=== PATIENT | male | born 2000 | race Two or more races ===

== ENCOUNTER 2025-01-20 07:21 | Emergency (ER) | payer MEDICAID, SELFPAY ==
[2025-01-20 07:21] VITALS: BMI 21.1
[2025-01-20 07:29] VITALS: BP 130/83; PULSE 67; RESP 19; TEMP 36.9; O2SAT 98
--- NOTE | 2025-01-20 07:33 | XR_ITS ---
Examination: Abdomen sonogram, Limited Date and time of exam: January 20, 2025, 0831 hrs. Indications: Upper abdominal pain beginning 2 hours ago. Technique: Real-time cavazos scale transabdominal sonographic images of the upper abdomen obtained. Findings: Cholelithiasis, negative for cholecystitis Common bile duct 0.2 cm Pancreatic head 2.0 cm. Liver 15 cm no liver lesions. Normal hepatopedal portal venous oh Patent IVC. Impression: Cholelithiasis, negative for cholecystitis
--- NOTE | 2025-01-20 07:34 | PD.EDABDPN ---
ED Abdominal Pain RME/HPI General Chief Complaint: Abdominal Pain Stated complaint: ABD PAIN AND NAUSEA TODAY SINCE 529 Time seen by provider: 01/20/25 07:27 Arrival date/time: 01/20/25 07:21 Source: patient Mode of arrival: ambulatory Limitations: no limitations RME / HPI RME / HPI narrative: Patient is a 24-year-old male with no significant past medical history seen emerged from concerns for epigastric pain. Patient states that he had tacos at approximately 12 AM, went to bed woke up this morning started having epigastric pain at approximately 540 in the morning, took Pepto-Bismol symptoms did not improve. Denies nausea vomiting chest pain palpitations dysuria hematuria melena bloody stools drugs smoking. Patient does drink alcohol. Denies diarrhea. Patient is having regular bowel movements. No surgeries to his alejandra HARPER complaint: abdominal pain Related Data Previous Rx's ?Medication ?Instructions ?Recorded ibuprofen 600 mg tablet 600 mg PO Q6H #30 tabs 06/20/19 Allergies Allergy/AdvReac Type Severity Reaction Status Date / Time No Known Allergies Allergy Verified 01/20/25 07:23 ED Exam General Limitations: Present no limitations General appearance: Present in no apparent distress Head Head exam: Present atraumatic Eye Eye exam: Present normal appearance, PERRL and EOMI; Absent conjunctival injection ENT ENT exam: Present normal exam and mucous membranes moist Neck Neck exam: Present normal inspection Chest Chest inspection: Present symmetric chest wall rise Respiratory Respiratory exam: Present normal lung sounds bilaterally Cardiovascular Cardiovascular exam: Present regular rate and normal rhythm Abdominal Exam Abdominal exam: Present soft and tenderness (Tenderness to palpation in the epigastrium, no rebound or guarding); Absent distention Back Exam Back exam: Present normal inspection Neurological Exam Neurological exam: Present alert, oriented X3 and CN II-XII intact Psychiatric Psychiatric exam: Present normal affect Skin Skin exam: Present warm and dry Course Quality Measures none Orders Category Date Time Status US abdomen limited Stat Exams 01/20/25 07:33 Completed CBC Stat Lab 01/20/25 08:08 Completed CMP [Comprehensive Metabolic Panel] Stat Lab 01/20/25 08:08 Completed Drug Screen,Urine Stat Lab 01/20/25 08:10 Completed Lactic Acid [Lactate (Lactic Acid)] Stat Lab 01/20/25 10:50 Completed Lipase Stat Lab 01/20/25 08:08 Completed UA, C/S IF [Urinalysis, C/S if Indicated] Stat Lab 01/20/25 08:10 Completed Lidocaine 2% Viscous [Xylocaine 2% Viscous] Med 01/20/25 07:33 Discontinued 15 ml PO X1 ONE mg Hyd/Al Hyd/Josue Susp [Maalox Susp] Med 01/20/25 07:33 Discontinued 30 ml PO X1 ONE Vital Signs Vital signs: Vital Signs Temperature 98.4 F 01/20/25 07:29 Pulse Rate 67 01/20/25 07:29 Respiratory Rate 19 01/20/25 07:29 Blood Pressure 130/83 01/20/25 07:29 Pulse Oximetry (%) 98 01/20/25 07:29 Oxygen Delivery Method Room Air 01/20/25 07:29 Abdominal Pain [facility] Narrative [facility] Narrative:: Patient is a 24-year-old male is in the emerged from concerns for epigastric pain. Vital signs and exam as listed. Concern for cholelithiasis, cholecystitis, pancreatitis, gastritis among others. Ordered labs, right upper quadrant ultrasound offer medication for symptom Labs w/ leukocytosis, patient not septic on presentation. No acute metabolic abnormality. U/s w/ evidence of cholelithiasis no cholecystitis. On re-eval patient sx well controlled, tolerating oral intake. Will dc to home with close return precautions and follow up with pcp and general surgeon. Patient data External records reviewed:: [facility] previous records Clinical information provided by:: patient Social determinants that could affect healthcare access:: none Patient has the following chronic illnesses:: None How is presenting disease/condition affected by chronic disease/condition?: no chronic disease Evaluation data The following diagnostics were reviewed and interpreted by me:: lab results and radiology exam(s) Lab and/or radiology exams considered but not ordered:: None Interpretation Summary: See MDM Medications / Prescriptions Medications or Prescriptions considered but not ordered:: None Medication administrations:: Medication Administration History Discontinued Medications Al Hydrox/Mg Hydrox/Simethicone (Mg Hyd/Al Hyd/Josue (Maalox Reg) Susp 30 Ml Udc) 30 ml PO X1 ONE Stop: 01/20/25 07:34 Last Admin: 01/20/25 07:54 Dose: 30 ml Documented By: [facility] Lidocaine HCl (Lidocaine Viscous 2% 15 Ml Udc) 15 ml PO X1 ONE Stop: 01/20/25 07:34 Last Admin: 01/20/25 07:54 Dose: 15 ml Documented By: C See above Consultations Consultation(s) initiated? (list below): No Diagnosis Differential diagnosis abdominal pain: abdominal pain Most likely diagnosis given after review of the tests above:: Biliary colic Admission Indicated Admission indicated?: not indicated Admission Request Was there a request for admission?: No Disposition Plan Disposition Plan: Discharge Discharge Attestation Discharge Attestation: The patient and all family members were given an opportunity to ask questions and understood the discharge instructions. Discharge instructions specifically effects, indications for sooner follow up or return to the emergency department, and the expected course of current diagnosis. Patient condition: Stable Discharge Plan Plan Patient Disposition: HOME (Self Care) Prescriptions/Referrals Prescriptions/Med Rec: No Action ibuprofen 600 mg tablet 600 mg PO Q6H Qty: 30 0RF Problem List Clinical Impression: Abdominal pain, Cholelithiasis Patient/Caregiver Discharge Instructions Education Materials: Abdominal Pain, Treating Gallstones Additional Instructions: Please follow-up with your primary care doctor within the next 1 to 2 days. Please establish care with a surgeon and discuss management of your symptomatic cholelithiasis. Please avoid fatty food, alcohol, dairy, spicy food as this will trigger gallbladder pain. Print Language: [place] Stand Alone Forms: [facility]ast[employer] Award Info., Patient Portal Info Letter
[2025-01-20] MEDS: LIDOCAINE VISCOUS 2% 15 ML UDC PO (07:54)
[2025-01-20] MEDS: MG HYD/AL HYD/SIME (Maalox Reg) SUSP 30 ML UDC PO (07:54)
[2025-01-20 08:28] LABS: Collection Type, Urine Clean Catch; Squamous Epithelial Cell,Urine 0 /hpf (0-5)
[2025-01-20 08:54] LABS: Basophils # (Auto) 0.1 Thou/mm3 (0.0-0.2); Basophils % (Auto) 0 % (0-2.5); Eosinophils # (Auto) 0.0 Thou/mm3 (0.0-0.5); Eosinophils % (Auto) 0 % (0-10); Hematocrit 47.4 % (41.0-53.0); Hemoglobin 16.7 g/dL (13.5-16.0); Immature Granulocytes Auto 0.06 Thou/mm3 (0.00-0.00); Lymphocytes # (Auto) 1.8 Thou/mm3 (1.0-4.8); Lymphocytes % (Auto) 11 % (10-50); Mean Corpuscular HGB Conc 35.2 g/dl (31.0-37.0); Mean Corpuscular Hemoglobin 31.6 pg (25.0-35.0); Mean Corpuscular Volume 90 fL (80-100); Monocytes # (Auto) 0.7 Thou/mm3 (0.0-0.8); Monocytes % (Auto) 4 % (0-12); Neutrophils # (Auto) 13.8 Thou/mm3 (1.8-7.7); Neutrophils % (Auto) 84 % (37-80); Nucleated Red Blood Cell # 0.00 Thou/mm3 (0.00-0.00); Nucleated Red Blood Cell % 0 /100 WBC (0); Platelet Count 212 Thou/mm3 (140-440); RDW Standard Deviation 39.6 fL (35.1-43.9); Red Blood Count 5.28 Miln/mm3 (4.50-5.90); White Blood Count 16.4 Thou/mm3 (3.8-10.6)
[2025-01-20 09:02] LABS: Amorphous Crystals,Urine Present (Absent); Bilirubin,Urine Negative (Negative); Blood,Urine Negative (Negative); Clarity,Urine Turbid (Clear/Hazy); Color,Urine Yellow (Lt Yel-Yel); Culture Indicated,Urine Not Indicated; Glucose, Urine Negative (Negative); Ketones,Urine Negative (Negative); Leukocyte Esterase,Urine Positive (Negative); Nitrite,Urine Negative (Negative); PH,Urine 7.5 (5.0-7.0); Protein,Urine Trace (Neg - Trace); RBC,Urine 3 /hpf (0-3); Specific Gravity,Urine 1.022 (1.001-1.035); Urobilinogen,Urine 2.0 mg/dL (0.0-1.0); WBC,Urine 6 /hpf (0-5)
[2025-01-20 09:27] LABS: Amphetamine/Methamp Scrn,U Negative (Negative); Barbiturate Screen,Urine Negative (Negative); Benzodiazepines Screen,Urine Negative (Negative); Benzoylecgonine Screen, Ur Negative (Negative); Fentanyl Screen,Urine Negative (Negative); Opiate Screen,Urine Negative (Negative); THC Screen,Urine Negative (Negative)
[2025-01-20 09:39] VITALS: BP 111/70; PULSE 79; RESP 19; TEMP 37; O2SAT 96
[2025-01-20 09:59] VITALS: BP 123/70; PULSE 86; RESP 18; TEMP 37.4; O2SAT 98
[2025-01-20 10:07] LABS: Alanine Aminotransferase 14 U/L (10-49); Albumin, Serum 4.8 gm/dL (3.5-5.0); Albumin/Globulin Ratio 2.0 (1.2-2.2); Alkaline Phosphatase 76 U/L (46-116); Anion Gap 11 (7-16); Aspartate Amino Transferase 16 U/L (0-34); BUN/Creatinine Ratio 14 Ratio (12-20); Bilirubin,Total 0.7 mg/dL (0.3-1.2); Blood Urea Nitrogen 14 mg/dL (9-23); Calcium 10.2 mg/dL (8.3-10.6); Calcium (Corrected) 10.2 mg/dL (8.5-10.1); Carbon Dioxide 29.0 mMol/L (20.0-31.0); Chloride 105 mMol/L (98-107); Creatinine (Component) 1.0 mg/dL (0.6-1.3); Estimated Creatinine Clearance 99.5 mL/min (>60); Globulin 2.4 gm/dL (2.3-3.5); Glucose 119 mg/dL (74-106); Lipase 28 U/L (12-53); Osmolality,Calculated 290 (275-295); Potassium 3.6 mMol/L (3.4-5.1); Sodium 145 mMol/L (136-145); Total Protein 7.2 gm/dL (5.7-8.2); eGFR > 60 See Note
[2025-01-20 10:58] LABS: Lactate (Lactic Acid) 0.8 mMol/L (0.4-2.0)
[2025-01-20 11:45] VITALS: BP 122/74; PULSE 80; RESP 19; TEMP 37; O2SAT 96
== END 2025-01-20 11:46 | disposition home or self-care (01) ==
PROVIDERS: Emergency Provider Emergency Medicine
DX: K80.20 Calculus of gallbladder without cholecystitis without obstruction (principal)
CPT/HCPCS: 36415; 76705; 80053; 80307; 81001; 83605; 83690; 85025; 99283; J3490; A9270